=== PATIENT | male | born 1985 ===

== ENCOUNTER 2021-05-09 14:03 | Emergency (ER) | payer SELFPAY ==
[2021-05-09 14:05] VITALS: BP 167/100; PULSE 103; RESP 16; TEMP 36.3; O2SAT 100; BMI 26.9
--- NOTE | 2021-05-09 15:54 | ED.RN ---
PT [facility]BS AT 1415.
== END 2021-05-09 14:15 | disposition left against medical advice (07) ==
LOC: ED 16:26
DX: Z72.89 Other problems related to lifestyle (principal)